=== PATIENT | female | born 1950 | race Caucasian/White ===

== ENCOUNTER 2016-09-19 16:56 | Emergency (ER) | payer SELFPAY ==
[~2016-09-19] VITALS: Ht 170.2 cm; Wt 80.8 kg
[2016-09-19] MEDS ORDERED: SODIUM CHLORIDE 0.9% 1,000ML IVBOLUS ONE (17:30)
[2016-09-19 18:12] LABS: ASPARTATE AMINO TRANSFERASE 19 U/L (15-37); BLOOD UREA NITROGEN 8 mg/dL (7-18)
[2016-09-19] MEDS ORDERED: HYDR-3138 PO (18:12)
[2016-09-19] MEDS ORDERED: OMEP10CA4 PO (18:12)
[2016-09-19 18:17] LABS: IS PT STATUS REG ER OR PRE ER? YES
[2016-09-19] MEDS ORDERED: MAALOX/HYOSCYAMINE/LIDOCAINE 45 ML BOTTLE PO ONE (18:30)
[2016-09-19] MEDS ORDERED: MAGNESIUM CITRATE 300ML ORAL SOL PO ONE (18:30)
[2016-09-19] MEDS ORDERED: FAMOTIDINE 20 MG TABLET PO ONE (18:30)
[2016-09-19] MEDS ORDERED: MAALOX/HYOSCYAMINE/LIDOCAINE 45 ML BOTTLE ONE (18:59)
[2016-09-19] MEDS ORDERED: FAMOTIDINE 20 MG TABLET ONE (18:59)
[2016-09-19] MEDS ORDERED: MAGNESIUM CITRATE 300ML ORAL SOL ONE (18:59)
[2016-09-19 19:06] VITALS: BP 140/71
== END 2016-09-19 19:44 | disposition home or self-care (01) ==
LOC: ED 19:20
DX: K59.00 Constipation, unspecified (principal); K21.0 Gastro-esophageal reflux disease with esophagitis
CPT/HCPCS: 36415; 74020; 80053; 81003; 83690; 84484; 85025; 93005